=== PATIENT | male | born 1980 | race Asian ===

== ENCOUNTER 2020-09-05 14:03 | Emergency (ER) | payer OTHER ==
[2020-09-05] MEDS ORDERED: HYDROcod/ACETAM 5/325 MG TABLET PO STA (14:50)
[2020-09-05] MEDS ORDERED: KETOROLAC 60 MG/2 ML VIAL IM STA (14:50)
--- NOTE | 2020-09-05 15:02 | ED Physician Documentation ---
PD HPI LOWER EXT INJURY - Stated complaint Stated Complaint: LEG INJURY - Chief complaint Chief Complaint: Trauma Ext - History obtained from History obtained from: Patient - Additional information Additional information: Patient comes emergency department chief complaint of right inguinal pain after slipping while walking. 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 He states that his right foot stayed planted but his left slid out behind him and that he tensed up to try to stop himself. He states initially, he did not have any pain to speak of and was able to keep walking around and perform his duties at work. However, over the course of a few hours he began to notice increasing pain and tightness in his proximal medial right thigh, which is worse with walking. He states he also noticed some pain in the superiormost aspect of the scrotum. No scrotal swelling or mass. Patient states that the only way to be able to walk it is to keep his knee completely straight. No numbness or tingling in his foot. No back pain. No prior history of injury to the area. Patient was feeling fine before the injury. No other complaints at this time. Review of Systems Ten Systems: 10 systems reviewed and negative Constitutional: reports: Reviewed and negative Eyes: reports: Reviewed and negative Ears: reports: Reviewed and negative Nose: reports: Reviewed and negative Throat: reports: Reviewed and negative Cardiac: reports: Reviewed and negative Respiratory: reports: Reviewed and negative GI: reports: Reviewed and negative : reports: Reviewed and negative Skin: reports: Reviewed and negative Musculoskeletal: reports: Extremity pain Neurologic: reports: Reviewed and negative Psychiatric: reports: Reviewed and negative Endocrine: reports: Reviewed and negative Immunocompromised: reports: Reviewed and negative PD PAST MEDICAL HISTORY - Past Medical History Past Medical History: No Cardiovascular: None Respiratory: None Neuro: None Endocrine/Autoimmune: None GI: None : None HEENT: None Psych: None Musculoskeletal: None Derm: None - Past Surgical History Past Surgical History: No - Present Medications Home Medications: Ambulatory Orders Medication Instructions Recorded Confirmed HYDROcod/ACETAM 5/325 [Oceana 5/325] 1 - 2 tablet PO Q6H PRN #8 tablet 09/05/20 - Allergies Allergies/Adverse Reactions: Allergies Allergy/AdvReac Type Severity Reaction Status Date / Time No Known Drug Allergies Allergy Verified 09/05/20 14:07 - Social History Does the pt smoke?: No Smoking Status: Never smoker Does the pt drink ETOH?: No Does the pt have substance abuse?: No - Immunizations Immunizations are current?: Yes PD ED PE NORMAL - Vitals Vital signs reviewed: Yes - General General: Alert and oriented X 3, No acute distress, Well developed/nourished - HEENT HEENT: Atraumatic, PERRL, EOMI, Moist mucous membranes - Neck Neck: Supple, no meningeal sign - Respiratory Respiratory: No respiratory distress - Abdomen Abdomen: Soft, Non tender, Non distended - Male Male : Other (Mild right proximal scrotal tenderness without mass, contusion, or swelling.) - Derm Derm: Normal color, Warm and dry, No rash - Extremities Extremities: No deformity, No edema, Other (Tenderness palpation over proximal most medial right thigh. No mass or edema. Range of motion at hip limited secondary to pain in inguinal area.) - Neuro Neuro: Alert and oriented X 3 - Psych Psych: Normal mood, Normal affect Results - Vitals Vitals: Vital Signs - 24 hr 09/05/20 09/05/20 14:08 15:27 Temperature 36.7 C Heart Rate 96 95 Respiratory 18 18 Rate Blood Pressure 142/97 H 135/91 H O2 Saturation 97 96 Oxygen O2 Source Room air PD MEDICAL DECISION MAKING - ED course Complexity details: considered differential, d/w patient ED course: I discussed with the patient that his symptoms and findings indicate a muscle strain in the inguinal area. We have discussed the self-limited nature of this injury, limitations on activities while recovering, the need for range of motion, stretching, ice, and anti-inflammatories, and the usual indications for return. Departure - Departure Disposition: 01 Home, Self Care Clinical Impression: Groin strain Qualifiers: Encounter type: initial encounter Laterality: right Qualified Code(s): S76.211A - Strain of adductor muscle, fascia and tendon of right thigh, initial encounter Condition: Stable Instructions: ED Strain Groin Prescriptions: HYDROcod/ACETAM 5/325 [Oceana 5/325] 1 - 2 tablet PO Q6H PRN #8 tablet PRN Reason: Pain Comments: The history of your injury and your physical exam findings point to a strain of the tendinous connections in your groin area, relating to the muscles of your thigh. This is an injury that will heal on its own given time. You may use ice, heat, massage, and anti-inflammatories like ibuprofen To help with the symptoms. You may take stronger pain medication prescribed if needed. You may use the knee immobilizer if it helps you to walk better while your groin is healing. Please follow up with your primary doctor if you are not feeling significantly improved in the next couple of weeks. Discharge Date/Time: 09/05/20 15:27
[2020-09-05 15:27] VITALS: BP 135/91
== END 2020-09-05 15:27 | disposition home or self-care (01) ==
LOC: ED 14:03
DX: S76.211A Strain of adductor muscle, fascia and tendon of right thigh, initial encounter (principal); W18.41XA Slipping, tripping and stumbling without falling due to stepping on object, initial encounter; Y92.511 Restaurant or cafe as the place of occurrence of the external cause; Y99.0 Civilian activity done for income or pay
CPT/HCPCS: 1040M; A9270; 96372; 99283; 99284